=== PATIENT | male | born 1990 | race Caucasian/White ===

== ENCOUNTER → 2017-08-11 | Outpatient (CLI) | payer BC, OTHER ==
[2017-08-20 08:16] LABS: SUMMARY SEE SEPARATE REPORT
== END ==
LOC: M SLEEP 19:58
DX: G47.10 Hypersomnia, unspecified (principal); G47.419 Narcolepsy without cataplexy
CPT/HCPCS: 95810

== ENCOUNTER 2019-11-09 16:16 | Emergency (ER) | payer BC, OTHER ==
[~2019-11-09] VITALS: Ht 177.8 cm; Wt 73.2 kg
[2019-11-09] MEDS ORDERED: METH20TA29 PO (16:26)
[2019-11-09] MEDS ORDERED: [UNRECOGNIZED DRUG - OTHER] PO (16:26)
[2019-11-09 19:35] VITALS: BP 139/75
== END 2019-11-09 19:36 | disposition home or self-care (01) ==
LOC: M ED 16:16
DX: G47.419 Narcolepsy without cataplexy (principal); R41.82 Altered mental status, unspecified; Z88.6 Allergy status to analgesic agent; Z79.899 Other long term (current) drug therapy